=== PATIENT | female | born 1965 | race Caucasian/White ===

== ENCOUNTER 2017-11-05 07:17 | Emergency (ER) | payer BC ==
[2017-11-05] MEDS ORDERED: Sodium Chloride 0.9% 1,000 ML IV ONE (07:18)
[2017-11-05] MEDS ORDERED: Ondansetron 4 MG/2 ML SDV IV ONE (07:18)
[2017-11-05] MEDS ORDERED: Ondansetron 4 MG/2 ML SDV ONE (08:05)
[2017-11-05 10:16] LABS: SODIUM,NA 136 mmol/L (135-145)
[2017-11-05 10:17] LABS: ANION GAP 11.7; CHLORIDE,CL 101 mmol/L (101-111)
--- NOTE | 2017-11-05 19:44 | EKG ---
11/05/2017 - [place] - TIME: 7:52 FINDINGS: EKG shows sinus rhythm, rate of 74 per minute. [facility] /[id number]
== END 2017-11-05 10:30 | disposition home or self-care (01) ==
LOC: DL.ED 07:17
DX: R55 Syncope and collapse (principal); R19.7 Diarrhea, unspecified; Z90.49 Acquired absence of other specified parts of digestive tract; Z86.19 Personal history of other infectious and parasitic diseases
CPT/HCPCS: 36415; 80053; 81001; 82140; 82150; 83690; 84484; 85027; 87045; 87046; 87328; 87329; 87493; 87899; 99281; J2405; J7030